=== PATIENT | male | born 1960 | race Hispanic/Latino ===

== ENCOUNTER 2017-12-28 07:17 | Emergency (ER) | payer OTHER, BC ==
[2017-12-28 07:27] VITALS: RESP 16; TEMP 98; O2SAT 98
[2017-12-28] MEDS ORDERED: Tdap Vaccine 0.5 ml Vial (10-64 yrs) IM ONE ×2 (07:41→07:50)
[2017-12-28] MEDS ORDERED: Bacitracin 500 Units/gm Oint Foilpak UD TOP STA (08:22)
--- NOTE | 2017-12-28 08:25 | C.PDOC ---
History Of Present Illness 57 y/o male presents to ED c/o pain and swelling to right hand s/p injury. Pt reports right hand was crushed by metal cabinet at work this morning. Denies active bleeding, change in sensation, or any other associated symptoms at this time. Time Seen by Provider: 12/28/17 07:35 Chief Complaint (Nursing): Upper Extremity Problem/Injury History Per: Patient History/Exam Limitations: no limitations Current Symptoms Are (Timing): Still Present Quality: "Pain" Recent travel outside of the [place]: No Additional History Per: Patient Past Medical History Reviewed: Historical Data, Nursing Documentation, Vital Signs Vital Signs: Last Vital Signs Temp 98 F 12/28/17 08:32 Pulse 70 12/28/17 08:32 Resp 16 12/28/17 08:32 BP 125/70 12/28/17 08:32 Pulse Ox 98 12/28/17 08:52 - Medical History PMH: Atrial Fibrillation, Hypothyroidism, Sleep Apnea Denies: Chronic Kidney Disease Family History: States: Unknown Family Hx - Social History Hx Alcohol Use: No Hx Substance Use: No Review Of Systems Except As Marked, All Systems Reviewed And Found Negative. Constitutional: Negative for: Fever, Chills Musculoskeletal: Positive for: Hand Pain (right) Neurological: Negative for: Weakness, Numbness Physical Exam - Physical Exam Appears: Non-toxic, No Acute Distress Skin: Warm, Dry, Ecchymosis (multiple ecchymosis to body (pt is on Xarelto), and ecchymosis to right hand), Other (two abrasion to palmar and dorsal aspect of right third MCP joint; no active bleeding, or laceration to right hand) Head: Atraumatic, Normacephalic Eye(s): bilateral: Normal Inspection Oral Mucosa: Moist Extremity: Normal ROM, Tenderness (right third MCP joint), Capillary Refill ( less than 2 seconds), No Deformity, Swelling (dorsum of right hand mostly in right third MCP joint) Pulses: Left Radial: Normal, Right Radial: Normal Neurological/Psych: Oriented x3, Normal Speech, Normal Sensation ED Course And Treatment O2 Sat by Pulse Oximetry: 98 (RA) Pulse Ox Interpretation: Normal - Other Rad Right hand Xray X-Ray: Interpreted by Me, Viewed By Me Interpretation: No acute fracture or dislocation Medical Decision Making Medical Decision Making: Plan: Right hand Xray Tdap Tylenol Keflex Progress note: Wound was cleansed with Betadine and normal saline. Bacitracin was applied. Dressing and damion wrap applied. Pt is being discharged home with instructions to follow up with PMD. Disposition - Disposition Disposition: HOME/ ROUTINE Disposition Time: 08:23 Condition: STABLE Additional Instructions: Follow up with your PMD within 1-2 days. Return to ED if feel worse. Prescriptions: Bacitracin OINT 1 applic TP TID #45 g Cephalexin [Keflex] 500 mg PO Q6 #20 cap Instructions: Contusion (DC), Skin Abrasions (DC) Forms: OR Productivity (Gambian), Work Excuse - Clinical Impression Clinical Impression: Contusion of hand, right, Abrasion hand - PA / [employer] / Resident Statement MD/DO has reviewed & agrees with the documentation as recorded. - Scribe Statement The provider has reviewed the documentation as recorded by the Scribe KP All medical record entries made by the Scribe were at my direction and personally dictated by me. I have reviewed the chart and agree that the record accurately reflects my personal performance of the history, physical exam, medical decision making, and the department course for this patient. I have also personally directed, reviewed, and agree with the discharge instructions and disposition.
[2017-12-28] MEDS ORDERED: Bacitracin 500 Units/gm Oint Foilpak UD ONE (08:28)
[2017-12-28 08:32] VITALS: BP 125/70; PULSE 70
--- NOTE | 2017-12-28 13:03 | RAD ---
PROCEDURE: Right Hand Radiographs. HISTORY: injury COMPARISON: None. FINDINGS: BONES: Normal. No fracture. JOINTS: Normal. No osteoarthritic changes. SOFT TISSUES: There is moderate dorsal soft tissue swelling most pronounced at the level of the metacarpal heads extending to the mid metacarpal region. OTHER FINDINGS: None. IMPRESSION: No definitive radiographic evidence of acute displaced fracture nor dislocation. Moderate dorsal soft tissue swelling as detailed above.
== END 2017-12-28 08:33 | disposition home or self-care (01) ==
LOC: C.ER 07:17
DX: S60.221A Contusion of right hand, initial encounter (principal); S60.511A Abrasion of right hand, initial encounter; W23.0XXA Caught, crushed, jammed, or pinched between moving objects, initial encounter; Y92.89 Other specified places as the place of occurrence of the external cause; Y99.0 Civilian activity done for income or pay